=== PATIENT | male | born 1945 | race Caucasian/White ===

== ENCOUNTER → 2016-05-17 | Outpatient (CLI) | payer MEDICARE ==
[~2016-05-17] MED LIST: ALBU1.25 NEB; ALBUAER3 INH; ASCO500C PO; ASPI81CH7 CHEW; ATOR20TA15 PO; BUPIVACAINE/EPINEPHRINE 0.5% PF 30 ML VIAL ONE; FENO48TA PO; IBUP200C PO; MULTTAB4 PO; RANI150T PO; TERA2CAP3 PO; VITA500T49 PO
[2016-05-17 10:36] LABS: PROTHROMBIN TIME - PATIENT 10.6 SEC (9.8-11.6)
[2016-05-17 10:39] LABS: BLOOD, URINE NEG (NEG); GLUCOSE,URINE NEG (NEG); KETONE, URINE NEG (NEG); NITRITE,URINE NEG (NEG); PH, URINE 7.5 (5.0-8.5); URINE COLOR YELLOW (YELLW/STRAW)
[2016-05-17 10:46] LABS: COMMENT (UR) CULT NOT INDICATED; CULTURE IF INDICATED CULT NOT INDICATED
[2016-05-17 10:53] LABS: POTASSIUM 4.3 MEQ/L (3.5-5.1)
--- NOTE | 2016-05-17 10:56 | RADRPT ---
EXAM DATE/TIME: 05/17/2016 10:26 [place] COMPARISON: No previous studies available for comparison. INDICATIONS : Evaluate for pneumonia, pneumothorax, or communicable disease. Pre-op for knee surgery scheduled on . MEDICAL HISTORY : None. SURGICAL HISTORY : None. ENCOUNTER: Initial ACUITY: 1 day PAIN SCORE: 0/10 LOCATION: Bilateral chest FINDINGS: PA and lateral views of the chest demonstrate the lungs to be symmetrically aerated without evidence of mass, infiltrate or effusion. The cardiomediastinal contours are unremarkable. Osseous structure s are intact with a mild thoracic dextroscoliosis. CONCLUSION: 1. No active disease. Mild thoracic dextroscoliosis. Micheal Luong MD on May 17, 2016 at 10:53 Board Certified Radiologist. This report was verified electronically.
== END ==
LOC: CPRE 09:30
PROVIDERS: ATTEND Orthopaedic Surgery
DX: Z01.812 Encounter for preprocedural laboratory examination (principal); Z01.818 Encounter for other preprocedural examination; S83.281A Other tear of lateral meniscus, current injury, right knee, initial encounter; X58.XXXA Exposure to other specified factors, initial encounter
CPT/HCPCS: 36415; 71020; 80048; 81001; 85610

== ENCOUNTER → 2016-05-25 | Day surgery (SDC) | payer MEDICARE ==
--- NOTE | 2016-05-22 17:14 | MH ---
cc: BARBARA RIGGS M.D. DATE OF ADMISSION: 05/25/2016 ADMITTING DIAGNOSIS: Lateral meniscus tear of the right knee, patella femoral arthrosis, right knee, effusion right knee, synovitis right knee, popliteal cyst right knee, pain right knee. HISTORY: The patient is a 70 year-old white male who has experienced pain of his right knee of at least three months duration. He associated the onset of his symptoms as a result of jazzercise exercise activities when he became symptomatic with a generalized pain about the anterior aspect of his right knee. He conformed to modified activities at that time which included applying ice and taking ibuprofen, and later began to wear a copper elastic support, but unfortunately remaining symptomatic with pain about the knee with an associated grinding sensation. He was seen by the undersigned physician in the early part of April of this year at which time x-ray studies of his right knee demonstrated degenerative changes primarily involving the patella femoral articulation. Findings and treatment options were reviewed with the patient at that time. He was instructed to continue taking ibuprofen on a daily basis as well as a trial course of Biofreeze while attempting to conform to exercise activities under his own supervision. He returned to the office in follow up disposition describing a lingering pain and swelling that had restricted his ambulatory activities and at that time he did receive an intra-articular steroid injection and subsequently underwent an MRI scan of his right knee, the results of which identified a degenerative appearing radial tear of the anterior horn of the lateral meniscus with an extruded body segment. Tricompartmental osteoarthritic changes especially involving the patellofemoral joint were also noted as well as a small effusion with severe synovitis and a small popliteal cyst. The patient continued to experience pain about his knee for which findings and treatment options were reviewed, the pros and cons of continuing with conservative management versus operative intervention that would initially involve arthroscopic surgery was outlined in detail. Emphasis was made regarding the fact that the decision to proceed with surgery would be left entirely to the patient's discretion. Giving the ongoing symptoms that the patient was experiencing and his failure to respond to conservative treatment in a comfortable manner, he expressed his desire to proceed with arthroscopic surgery at this time for which he is presently being admitted. PAST MEDICAL HISTORY, HOSPITALIZATIONS AND SURGERIES: Included excision of multiple skin cancers of the upper and lower extremities, tonsillectomy, arthrotomy of the left knee for meniscal type lesion, colonoscopy, upper endoscopy and an overnight cardiac evaluation that apparently resulted in no abnormality of the heart. Medical illnesses included: Elevated cholesterol for which he takes Tricor 48 milligrams at bed time and Lipitor 20 milligrams daily. He also takes terazosin 2 milligrams daily. History of asthma for which he currently uses ProAir HFA inhaler on a p.r.n. basis. He also has albuterol 1.25 milligrams taken p.r.n. Ranitidine 150 milligrams for a history of acid reflux. ADDITIONAL MEDICATIONS: 1. 81 milligram aspirin tablet daily. 2. Ibuprofen 200 milligrams p.r.n. 3. Men's vitamin daily. 4. Vitamin C 500 milligrams daily. 5. B12 2500 milligrams daily. ALLERGIES: No known drug allergies. REVIEW OF SYSTEMS: He does wear glasses, denies headache, seizure or syncope. No sinus congestion or epistaxis. Auditory acuity intact. No tinnitus, no bleeding gums or dysphagia. Denies cough, shortness of breath, or pneumonia. He has had a history of bronchitis. No angina or heart disease. His appetite is good. Bowel movements are regular. No hepatitis, gallbladder disease, ulcers, or hemorrhoids. No urinary tract infection. No kidney stones. No prostate disease. No history of fractures. No psychiatric illness. His remainder of the review of systems is unremarkable and noncontributory. FAMILY HISTORY: The patient has been 46 years. His is 67 years of age and reasonably good health. A 42 year-old daughter is indicated to be in good health. FAMILY HISTORY: Positive for hypertension, emphysema, and lung cancer. SOCIAL HISTORY: The patient completed a Master's Degree in education. 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 He denies active use of tobacco for at least 36 years but had been less than a one pack per day user for 3-4 years prior to that time. Ethanol consumption in the form of an occasional glass of wine on a social basis. PHYSICAL EXAMINATION: Height 5'11", weight 227 pounds. GENERAL: An alert, oriented, responsive 70 year-old white male, who sits quietly upon the examination table with no obvious distress. HEAD, EYES, EARS, NOSE, AND THROAT: Pupils are equally round and reactive to light. Extraocular movements full. Sclerae clear. External nares clear. External auditory canals clear. Dental intact. Mucous membranes pink and moist. Pharynx is clear. NECK: Supple. Active range of motion with no appreciable pain. Carotid pulse palpable bilaterally. Trachea midline. Thyroid without enlargement. LUNGS: Clear to auscultation and percussion. BACK: No CVA tenderness. No discomfort throughout the dorsolumbar spine. HEART: Regular rhythm. No murmur or gallop. ABDOMEN: Soft, non-tender. Bowel sounds are present. RECTAL: Per primary care physician. EXTREMITIES: Right knee, no significant swelling or effusion. There is minimal lateral joint line tenderness without palpable deformity. Apprehension and compression sign are negative. There is satisfactory mobility of the knee joint with slight limitation at the extreme of flexion, a subtle suggestion for crepitation. No collateral ligamentous instability. Santhosh test and drawer sign negative, pivot shift and Christel sign minimally positive for lateral compartment pain. Straight leg raising unremarkable at 80 degrees, independent gait. NEUROLOGIC: Cranial nerves II through XII grossly intact. IMPRESSION: Lateral meniscus tear of the right knee, patella femoral arthrosis right knee, effusion right knee, synovitis right knee, popliteal cyst right knee, pain right knee. PLAN: Arthroscopic surgery and possible arthrotomy right knee. The nature of the planned surgical procedure, the potential complications and risks associated, the expectations of surgery and the consent form were thoroughly reviewed with the patient prior to admission to the hospital. Geremias has indicated his full understanding regarding all of the above and given consent to proceed with treatment as outlined. Medical evaluation and clearance for surgery will be completed per his primary care physician, Dr. Donaldo Rubalcava. MD CLAUDE Bustillo/JAY /4:32 PM /4:44 PM
[~2016-05-25] VITALS: Ht 180.3 cm; Wt 102.9 kg
[~2016-05-25] MED LIST changes: +ACETAMINOPHEN/HYDROcodone 325 MG/5 MG TAB ONE; -BUPIVACAINE/EPINEPHRINE 0.5% PF 30 ML VIAL ONE; +DEXAMETHASONE SOD PHOS 4 MG/ML VIAL ONE; +DO NOT ADM ANY ANTICOAGULANT DRUGS XX PRN; +FAMOTIDINE 20 MG/2 ML VIAL ONE; +INSULIN HUMAN REGULAR 1,000 UNITS/10 ML VIAL SQ PRN; +KETOROLAC TROMETHAMINE 60 MG/2 ML (IM) VIAL IM ONE; +LACTATED RINGER'S 1000 ML INJ 1,000 ML IV ONE; +LACTATED RINGER'S 1000 ML IV SCH; +LIDOCAINE HCL 2% PF SOLN 10 ML VIAL INFIL ONE; +METOPROLOL TARTRATE 25 MG TAB PO PRN; +MIDAZOLAM HCL 2 MG/2 ML VIAL ONE; +ONDANSETRON HCL 4 MG/2 ML VIAL IV PUSH ONE; +PROPOFOL 200 MG/20 ML AMP IV ONE; +SODIUM CHLORID 0.9% 500 ML IV SCH; +TRIAMCINOLONE ACETONIDE 40 MG/ML VIAL I-SYNOVIAL ONE; +ceFAZolin 2 GM PREMIX 50 ML IV SCH
[2016-05-25 08:53] VITALS: BP 159/55; PULSE 78; RESP 16; TEMP 98.9; O2SAT 96
[2016-05-25 13:15] VITALS: BP 164/85; PULSE 74; RESP 18; TEMP 97.8; O2SAT 96
--- NOTE | 2016-05-26 18:19 | MP ---
cc: BARBARA CORTES DATE OF SURGERY: 05/26/2016. PREOPERATIVE DIAGNOSIS: 1. Lateral meniscus tear of the right knee. 2. Patellofemoral arthrosis right knee. 3. Effusion right knee. 4. Synovitis right knee. 5. Popliteal cyst right knee. 6. Pain right knee. POSTOPERATIVE DIAGNOSIS: 1. Lateral meniscus tear of the right knee. 2. Patellofemoral arthrosis right knee. 3. Effusion right knee. 4. Synovitis right knee. 5. Popliteal cyst right knee. 6. Pain right knee. 7. Osteoarthritis of the knee and loose body. OPERATIVE PROCEDURE PERFORMED: 1. Partial lateral meniscectomy right knee. 2. Chondroplasty of the medial compartment and the patellofemoral joint and removal of loose body right knee SURGEON: Barbara Cortes MD. ANESTHESIA: General by LMA. DESCRIPTION OF THE PROCEDURE IN DETAIL / FORMAT: Following induction of satisfactory general anesthesia by LMA insertion as completed per the department of anesthesia examination of the right knee revealed a satisfactory range of motion with no appreciable ligamentous instability. The extremity proper was positioned into the camp assistant knee campbell and prepped with Betadine solution and draped into a sterile field in the routine manner. Prior to initiation of the actual procedure, the standard time-out protocol was completed. All parameters were appropriately addressed and confirmed by operating room personnel. Arthroscopic instrumentation was introduced through a stab wound utilizing cannula with sharp and blunt trocar, the inflow irrigation by way of a medial suprapatellar portal, the arthroscope through a medial parapatellar portal and a probe through a lateral parapatellar portal. Examination of the suprapatellar pouch did reveal some mild proliferative synovitis within the patellofemoral joint. There was significant cartilaginous erosion with subchondral bone exposed about both the patellar and femoral sides of the joint space. Within the lateral compartment, a pronounced degenerative tear involving the body and anterior horn of the lateral meniscus was noted. There were adjacent articular changes along the femoral condyle. There was attenuation of the anterior cruciate ligament within the intercondylar region but the majority of the structure was intact. Additional degenerative changes were appreciated within the medial compartment especially involving the femoral condyle. Attention was redirected initially to the lateral compartment. Utilizing a 4.0 aggressive resector, a partial lateral meniscectomy was accomplished as well as generalized debridement throughout the articular surface of the lateral space. The shaver was thereafter oriented to the medial compartment where a chondroplasty of the medial femoral condyle was accomplished. Attention was thereafter directed to the patellofemoral joint where an abrasion type chondroplasty was completed during which time a loose body was visualized within the field and the loose body was isolated with in the intercondylar region and utilizing a grasping forceps through the medial portal site. The loose body was captured and removed from the confines of the joint space. Upon completion of same, the joint space was suctioned dry of irrigating fluid and thereafter an intra-articular injection of a Kenalog / lidocaine solution was completed. The portal sites were reapproximated with Steri-Strips over which Xeroform gauze and a bulky dry sterile dressing were placed. Anesthesia was discontinued and the patient thus transferred to a hospital stretcher and returned to the recovery room in satisfactory condition having tolerated his operative procedure well. Estimated blood loss was less than 5 mL. MD CLAUDE Bustillo/JCC /12:05 PM /6:04 PM
== END | disposition home or self-care (01) ==
LOC: HSDC 07:49
PROVIDERS: ATTEND Orthopaedic Surgery
DX: S83.281A Other tear of lateral meniscus, current injury, right knee, initial encounter (principal); M65.861 Other synovitis and tenosynovitis, right lower leg; M71.21 Synovial cyst of popliteal space [Baker], right knee; M25.461 Effusion, right knee; M17.11 Unilateral primary osteoarthritis, right knee; M25.561 Pain in right knee; J45.909 Unspecified asthma, uncomplicated
CPT/HCPCS: 01400; 29881; G0289; J0690; J1100; J1885; J2250; J2405; J3010; J3301; J7120

== ENCOUNTER → 2016-07-23 | Day surgery (SDC) | payer MEDICARE ==
[~2016-07-23] MED LIST changes: -ACETAMINOPHEN/HYDROcodone 325 MG/5 MG TAB ONE; -DEXAMETHASONE SOD PHOS 4 MG/ML VIAL ONE; -DO NOT ADM ANY ANTICOAGULANT DRUGS XX PRN; -FAMOTIDINE 20 MG/2 ML VIAL ONE; -INSULIN HUMAN REGULAR 1,000 UNITS/10 ML VIAL SQ PRN; -KETOROLAC TROMETHAMINE 60 MG/2 ML (IM) VIAL IM ONE; -LACTATED RINGER'S 1000 ML INJ 1,000 ML IV ONE; +LACTATED RINGER'S 1000 ML INJ 1,000 ML ONE; -LACTATED RINGER'S 1000 ML IV SCH; -LIDOCAINE HCL 2% PF SOLN 10 ML VIAL INFIL ONE; -METOPROLOL TARTRATE 25 MG TAB PO PRN; -MIDAZOLAM HCL 2 MG/2 ML VIAL ONE; -ONDANSETRON HCL 4 MG/2 ML VIAL IV PUSH ONE; -PROPOFOL 200 MG/20 ML AMP IV ONE; +PROPOFOL 500 MG/50 ML BTL IV ONE; -RANI150T PO; -SODIUM CHLORID 0.9% 500 ML IV SCH; -TRIAMCINOLONE ACETONIDE 40 MG/ML VIAL I-SYNOVIAL ONE; -ceFAZolin 2 GM PREMIX 50 ML IV SCH
--- NOTE | 2016-07-23 14:54 | GIPROC ---
[facility] [address] [facility], [address] EGD PROCEDURE REPORT EXAM DATE: 07/23/2016 PATIENT NAME: Geremias Anguiano MR #: [id number] BIRTHDATE: 1945 ATTENDING: Johana Rivers MD ORDER #: [id number] STRUCTURAL STEEL ERECTOR: STATUS: outpatient INDICATIONS: The patient is a 70 yr old male here for an EGD due to fu gastritis, esophagitis PROCEDURE PERFORMED: EGD w/ biopsy MEDICATIONS: None and Per Anesthesia. TOPICAL ANESTHETIC: none CONSENT: The patient understands the risks and benefits of the procedure and understands that these risks include, but are not limited to: sedation, allergic reaction, infection, perforation and/or bleeding. Alternative means of evaluation and treatment include, among others: physical exam, x-rays, and/or surgical intervention. The patient elects to proceed with this endoscopic procedure. medical equipment was checked for proper function. Hand hygiene and appropriate measures for infection prevention was taken. After the risks, benefits and alternatives of the procedure were thoroughly explained, Informed consent was verified, confirmed and timeout was successfully executed by the treatment team. The patient was anesthetized with topical anesthesia and the EC-3490Li ([id number]), EC-2990Li ([id number]), and EG-[id number] ([id number]) endoscope was introduced through the mouth and advanced to the second portion of the duodenum. Retroflexed views revealed a hiatal hernia The gastroscope was then slowly withdrawn and removed. Nodular gastritis antrum-biopsy esophagitis distal esophagus-biopsy duodenitis second portion biopsy. ADVERSE EVENTS: There were no complications. IMPRESSIONS: 1. Nodular gastritis antrum-biopsy esophagitis distal esophagus-biopsy duodenitis second portion biopsy 2. Retroflexed views revealed a hiatal hernia RECOMMENDATIONS: 1. Await biopsy results. Biopsy results will not be ready for 7-10 days. If you don't hear from us in two weeks, call our office for biopsy results. 2. Anti-reflux regimen 3. Continue PPI 4. Avoid NSAIDS PATIENT CONDITION: stable DISPOSITION: Home REPEAT EXAM: EGD pending biopsy results Johana Rivers MD eSigned: Johana Rivers MD 07/23/2016 2:53 PM cc: libby chandra M.D.
== END | disposition home or self-care (01) ==
LOC: ESDC 11:50
PROVIDERS: ATTEND Internal Medicine Gastroenterology
DX: K29.70 Gastritis, unspecified, without bleeding (principal); K20.9 Esophagitis, unspecified; K44.9 Diaphragmatic hernia without obstruction or gangrene; K29.80 Duodenitis without bleeding
CPT/HCPCS: 00740; 43239; 88305; J3010; J7120; 88312